=== PATIENT | male | born 1950 | race Caucasian/White ===

== ENCOUNTER 2018-11-26 23:13 | Emergency (ER) | payer OTHER, MEDICARE ==
--- NOTE | 2018-11-27 02:05 | RADIOLOGY REPORT (SQ) ---
EXAM DESCRIPTION: XR CHEST 1 VIEW COMPLETED DATE/TME: 11/27/2018 00:44 CLINICAL HISTORY: 68 years, Male, cough COMPARISON: None. NUMBER OF VIEWS: TECHNIQUE: LIMITATIONS: None. FINDINGS: There is possible emphysema. No evidence of acute pulmonary infiltrate or pleural effusion. There is a probable right-sided nipple shadow. The heart is normal in size. Pulmonary vascularity appears normal. There is tortuosity of the thoracic aorta. IMPRESSION: Possible emphysema. copyright 2010 [employer]- All Rights Reserved
[2018-11-27 02:17] LABS: ABSOLUTE EOSINOPHILS # (AUTO) 0.1 10^3/uL (0.0-0.6); ABSOLUTE LYMPHOCYTES (AUTO) 0.9 10^3/uL (0.5-4.7); ABSOLUTE MONOCYTES (AUTO) 0.3 10^3/uL (0.1-1.4); ABSOLUTE NEUT (AUTO) 2.4 10^3/uL (1.7-8.2); BASOPHILS % (AUTO) 0.5 % (0-2); EOSINOPHILS % (AUTO) 3.1 % (0-6); HEMATOCRIT 37.7 % (37.9-51.0); HEMOGLOBIN 12.9 g/dL (13.5-17.0); LYMPHOCYTES % (AUTO) 25.1 % (13-45); MEAN CORPUSCULAR HEMOGLOBIN 32.8 pg (27.0-33.4); MEAN CORPUSCULAR HGB CONC 34.2 g/dL (32.0-36.0); MEAN CORPUSCULAR VOLUME 96 fl (80-97); MONOCYTES % (AUTO) 8.4 % (3-13); PLATELET COUNT 151 10^3/uL (150-450); RED BLOOD COUNT 3.93 10^6/uL (4.35-5.55); RED CELL DISTRIBUTION WIDTH 13.8 % (11.5-14.0); SEGMENTED NEUTROPHILS % (AUTO) 62.9 % (42-78); TOTAL CELLS COUNTED % (AUTO) 100 %; WHITE BLOOD COUNT 3.7 10^3/uL (4.0-10.5)
[2018-11-27 02:26] LABS: ALANINE AMINOTRANSFERASE 19 U/L (21-72); ALBUMIN 4.6 g/dL (3.5-5.0); ALKALINE PHOSPHATASE 94 U/L (38-126); ANION GAP 10 (5-19); ASPARTATE AMINO TRANSFERASE 36 U/L (17-59); BILIRUBIN,DIRECT 0.4 mg/dL (0.0-0.4); BILIRUBIN,TOTAL 0.7 mg/dL (0.2-1.3); BLOOD UREA NITROGEN 13 mg/dL (7-20); CALCIUM 9.8 mg/dL (8.4-10.2); CARBON DIOXIDE 30 mmol/L (22-30); CHLORIDE 102 mmol/L (98-107); GLUCOSE 85 mg/dL (75-110); POTASSIUM 3.7 mmol/L (3.6-5.0); TOTAL PROTEIN 7.8 g/dL (6.3-8.2)
[2018-11-27] MEDS ORDERED: IPRATROPIUM/ALBUTEROL 0.5-2.5 MG/3 ML AMPUL NEB ONE (02:46)
[2018-11-27] MEDS ORDERED: AZITHROMYCIN 250 MG TABLET PO ONE (03:42)
--- NOTE | 2018-11-27 03:42 | ER Document Report ---
ED General - General Chief Complaint: Sinus Congestion Stated Complaint: EAR,NOSE,THROAT SWELLING Time Seen by Provider: 11/27/18 00:04 Primary Care Provider: REYES DAVIS [Primary Care Provider] - Follow up in 3-5 days Notes: Patient is a 60-year-old male who presents to the emergency department with a chief complaint of productive cough for the past 2 weeks. He states that he has had drainage from his nose and from the back of his throat and states that he has some shortness of breath. His drainage is yellowish clear. He was seen at [facility] 2 weeks ago and was told that he did not have anything wrong and was sent home with an albuterol inhaler with a spacer. He states that he uses it periodically. Patient states that he is scheduled to see a mixing and molding machine operator. Patient has history of what might be TIAs, but he is being sent by his primary care provider for an MRI which will be done on December 03. TRAVEL OUTSIDE OF THE [place] IN LAST 30 DAYS: No - Related Data Allergies/Adverse Reactions: piperacillin [From Zosyn] Allergy (Verified 11/27/18 02:13) tazobactam [From Zosyn] Allergy (Verified 11/27/18 02:13) Past Medical History - General Information source: Patient - Social History Smoking Status: Former Smoker Frequency of alcohol use: recovering alcoholic Family History: None Patient has suicidal ideation: No Patient has homicidal ideation: No Endocrine Medical History: Reports: Hx Diabetes Mellitus Type 2 Renal/ Medical History: Denies: Hx Peritoneal Dialysis Psychiatric Medical History: Reports: Hx Bipolar Disorder Past Surgical History: Reports: Hx Orthopedic Surgery Review of Systems - Review of Systems Notes: REVIEW OF SYSTEMS: CONSTITUTIONAL : Denies recent illness. Denies recent unintentional weight loss. Denies fever, chills, or sweats. EENT: See HPI CARDIOVASCULAR: Denies chest pain. RESPIRATORY: See HPI GASTROINTESTINAL: Denies nausea, vomiting, and diarrhea. Denies abdominal pain. Denies constipation. GENITOURINARY: Denies difficulty urinating, burning, blood in urine, urgency or frequency. MUSCULOSKELETAL: Denies neck and back pain. Denies joint pain or swelling. SKIN: Denies rash, itchiness, or lesions HEMATOLOGIC : Denies easy bruising or bleeding. LYMPHATIC: Denies swollen, painful, enlarged glands. NEUROLOGICAL: Denies no numbness or tingling denies weakness. Denies headache. Denies altered mental status. Denies alteration in speech. PSYCHIATRIC: Denies stress, anxiety, alteration in sleep patterns, or depression. All other systems reviewed and negative. Physical Exam - Vital signs Vitals: Temp Pulse Resp BP Pulse Ox 97.9 F 85 22 H 126/56 H 100 11/26/18 23:46 11/26/18 23:46 11/26/18 23:46 11/26/18 23:46 11/26/18 23:46 - Notes Notes: PHYSICAL EXAMINATION: GENERAL: Appears thin, underly-nourished, no acute distress. HEAD: Normocephalic, atraumatic. EYES: PERRL, conjunctiva normal, all extraocular movements intact, sclera nonicteric ENT: Dry mucous membranes. Sputum noted docs of the patient's throat. Tenderness noted to the maxillary sinuses. NECK: Supple, no noticeable swelling, redness, rash. Normal range of motion. LUNGS: Equal breath sounds bilaterally and clear to auscultation. No wheezes rales or rhonchi. Expiratory breath sounds are diminished. CARDIOVASCULAR: S1-S2, regular rate, regular rhythm. Radial pulses 2+, normal. ABDOMEN: Normoactive bowel sounds. Soft, nontender, no guarding, no rebound tenderness, and no masses palpated. EXTREMITIES: Normal strength and range of motion, no pitting or edema. No cyanosis. NEUROLOGICAL: Moves all extremities upon command. Strength 5/5 in all extremities. PSYCH: Normal mood, normal affect. SKIN: Warm, dry. No rash, lesions, ulcerations noted. Normal skin turgor. Course - Re-evaluation Re-evalutation: Patients laboratory studies show a mild leukopenia, but no pancytopenia. In 2016 WBC count was 7. He is now being in the neck, which is chronic. Chemistries are unremarkable. Was patient is complaining of nasal and throat congestion and states that he sometimes has a hard time to breathe. His chest x-ray showed some emphysema and therefore I went ahead and gave him a DuoNeb t reatment. After the DuoNeb treatment the patient felt like he was more short of breath and he states that he felt like his whole body was jittery and he felt like his whole body was going numb. The patient was having a mild reaction to the DuoNeb treatment and was becoming anxious. He also was attempting to show that the emesis bag into his throat to try to get the sputum out of the back of his throat. I told the patient that he needs to stop and take nice slow deep breaths. Once he was able to take nicely deep breaths he was able to calm down. His heart rate was rechecked and it was in the 90s. Respiratory rate was 20 on my assessment. I told him that I would start him on azithromycin for his sinusitis. I would have like to give him Augmentin, but he is allergic to Piperacillin. The patient already has an albuterol inhaler at bedside with spacer. I instructed him to continue to use the albuterol inhaler and spacer as needed for shortness of breath. He is in agreement with this plan. He will follow-up with his primary care provider and mixing and molding machine operator or the [place]. Follow-up precautions were given. Verbal discharge instructions were given to the patient. They verbalized understanding. They are stable for discharge. Documentation was completed using voice recognition software, therefore there may be some unintended grammatical or punctual errors. 11/28/18 01:08 11/28/18 01:10 - Vital Signs Vital signs: Temp Pulse Resp BP Pulse Ox 97.4 F 95 32 H 125/52 L 100 11/27/18 04:29 11/27/18 04:29 11/27/18 04:29 11/27/18 04:29 11/27/18 04:29 - Laboratory Result Diagrams: 11/27/18 01:55 11/27/18 01:55 Laboratory results interpreted by me: 11/27/18 11/27/18 01:55 01:55 WBC 3.7 L RBC 3.93 L Hgb 12.9 L Hct 37.7 L ALT 19 L Discharge - Discharge Clinical Impression: Congestion of nasal sinus, Rhinorrhea Emphysema lung Qualifiers: Emphysema type: unspecified Qualified Code(s): J43.9 - Emphysema, unspecified Sinusitis Qualifiers: Sinusitis location: maxillary Chronicity: subacute Qualified Code(s): J01.00 - Acute maxillary sinusitis, unspecified Condition: Stable Disposition: HOME, SELF-CARE Additional Instructions: You are seen today in the emergency department for a cough and nasal drainage. You are being treated for a sinus infection. Please take all your antibiotics as prescribed. Make sure you finish all your medications. Please follow-up with your mixing and molding machine operator in regards to your emphysema. You can do your inhaler as needed to help with shortness of breath. If you have worsening symptoms, please return to the emergency department. Prescriptions: Azithromycin [Zithromax 250 mg Tablet] 250 mg PO DAILY #4 tablet Referrals: [facility] [Primary Care Provider] - Follow up in 3-5 days
[2018-11-27 04:30] VITALS: BP 125/52
== END 2018-11-27 04:50 | disposition home or self-care (01) ==
LOC: ER 23:13
DX: R05 Cough (principal); J34.89 Other specified disorders of nose and nasal sinuses; J43.9 Emphysema, unspecified; J01.00 Acute maxillary sinusitis, unspecified
CPT/HCPCS: 94640; 99283; 36415; 85025; 80053; 71045; J7620

== ENCOUNTER → 2019-01-29 | Outpatient (CLI) | payer MEDICARE, OTHER ==
--- NOTE | 2019-01-29 11:13 | RADIOLOGY REPORT (SQ) ---
EXAM DESCRIPTION: CT CHEST WITHOUT COMPLETED DATE/TIME: 01/29/2019 9:46 am REASON FOR STUDY: R91.1 SOLITARY PULMONARY NODULE R91.1 SOLITARY PULMONARY NODULE COMPARISON: 06/15/2008 TECHNIQUE: CT scan performed of the chest without intravenous contrast. Images reviewed with lung, soft tissue and bone windows. Reconstructed coronal and sagittal MPR images reviewed. All images st ored on PACS. All CT scanners at this facility use dose modulation, iterative reconstruction, and/or weight based d osing when appropriate to reduce radiation dose to as low as reasonably achievable (ALARA). [facility]: Dose Right [facility]: CareDose [facility]: Dose Right [facility]: Teradose 4D [facility]: Smart c-crowd RADIATION DOSE: CT Rad equipment meets quality standard of care and radiation dose reduction techniq ues were employed. CTDIvol: 8.1 mGy. DLP: 299 mGy-cm. mGy. LIMITATIONS: No technical limitations. FINDINGS: LUNGS AND PLEURA: No focal airspace disease, pleural effusion or pneumothorax. There is a 6 mm right middle lobe pulmonary nodule (series 4, image 67), stable since 2008. No additional pulm onary nodules or masses. HILAR AND MEDIASTINAL STRUCTURES: No identified masses or abnormal nodes. No obvious aneurysm. HEART AND VASCULAR STRUCTURES: Normal heart size. Coronary atherosclerosis. UPPER ABDOMEN: Evidence of prior granulomatous disease with hepatic and splenic calcified granuloma. THYROID AND OTHER SOFT TISSUES: No masses. No adenopathy. BONES: Age indeterminate mild superior endplate compression deformities of T7 and T8. No other acute bony abnormality. No suspicious osseous lesions. HARDWARE: None in the chest. OTHER: No other significant findings. IMPRESSION: 1. Minimal ground-glass attenuation within the right lower lobe, possibly infectious or inflammatory or atelectatic change. No other evidence of acute intrathoracic process. 2. Stable 6 mm right middle lobe pulmonary nodule since 2008 which requires no additional follow-up. No other suspicious nodules or masses. 3. Age-indeterminate mild superior endplate compression deformities of T7 and T8. Recommend correla tion with symptoms. TECHNICAL DOCUMENTATION: JOB ID: [id number] Quality ID # [id number]: Final reports with documentation of one or more dose reduction techniques (e.g., Au tomated exposure control, adjustment of the mA and/or kV according to patient size, use of iterative reconstruction technique) 2010 [employer]- All Rights Reserved Reading location - IP/workstation name: [email or web address]
== END ==
LOC: RAD 09:29
PROVIDERS: ATTEND Registered Nurse
DX: R91.1 Solitary pulmonary nodule (principal)
CPT/HCPCS: 71250